=== PATIENT | male | born 1955 | race Caucasian/White ===

== ENCOUNTER 2016-05-30 19:18 | Emergency (ER) | payer MEDICARE ==
[~2016-05-30] VITALS: Ht 182.9 cm; Wt 113.4 kg
[2016-05-30] MEDS ORDERED: ALBUTEROL-200 PUFFS/ IH (19:30)
--- NOTE | 2016-05-30 21:19 | Emergency Room Report ---
History of Present Illness Time Seen by [id number] Presenting Problem in Triage Pt arrived:Walked Presenting Problem:PT STATES THAT HE WAS BREAKING A TV AND CUT HIS RIGHT HAND. 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 N Clinical Suspician of Infection? N Mental Status: 1 - Regular (Normal Baseline) Sepsis Risk:Low Sepsis Risk Have you (or family members/close friends) recently traveled outside the [place]? N If Yes, where/when: Have you had exposure to infectious disease within the past month? N TB? Other? Specify: Source patient, RN notes reviewed, family, old records Exam Limitations no limitations Comment pt with lac rt thumb on glass tonight - not workman comp Cardiac Chest Pain Chest pain indicative of cardiac No Timing/Duration this evening Severity moderate ALLERGIES Coded Allergies: Penicillins (05/30/16) Home Medications Reported Medications Albuterol (Albuterol-Hfa Inhaler) 1 PUFF IH Q4HP PRN BREATHING MISCELLANEOUS (UNKNOWN MEDICATION) 1 CAP PO BID MISCELLANEOUS (UNKNOWN MEDICATION) 1 CAP PO DAILY History Medical History General CAD? No Angina: No IA: No Hypertension? Yes Hyperlipidemia? Yes CHF? No DVT? No PE? No COPD? Yes Asthma? Yes Anemia? No GERD? No Gastric ulcers? No GI Bleed? No Hernia? No Thyroid Problems? No Hypothyroidism? No CVA? No Seizures? No Diabetes? Yes Insulin Dependent: No Insulin Pump: No Home FSBS? Yes Renal Insuffiency? No End Stage Renal Disease? No UTI? No Stones? No BPH? No GB Disease: No Nephritic Syndrome? No Asplenia? No Hepatitis? No Sickle Cell Disease? No Arthritis? No Migraines? No Cataracts? No Glaucoma? No MRSA? No HIV? No TB? No Anxiety? No Depression? No Cancer? No More? No Immunization Hx Ped.Immunizations UTD No DT/Tetanus 5-10 Years Ago Surgical Hx Previous Surgery?Y APPENDECTOMY Social History Smoking Hx Smoker: Current Every Day Smoker Tobacco: Yes Type Cigarettes Packs/day < 1 Pack Are you/the child exposed to second-hand smoke: Yes Alcohol Alcohol: No Drugs none Review of Systems All Other Systems Reviewed and Negative Constitutional denies fever Eyes denies drainage ENT denies: ear discharge, epistaxis, throat pain. Respiratory denies cough, denies shortness of breath, denies wheezing Cardiovascular denies chest pain, denies palpitations, denies syncope Gastrointestinal denies abdominal pain, denies diarrhea, denies vomiting Genitourinary denies: dysuria, frequency, hesitancy, hematuria. Musculoskeletal see HPI, denies back pain, denies joint pain, denies joint swelling, denies neck pain, other Skin see HPI, denies rash, other Psychiatric/Neurological denies headache, denies seizure Physical Exam Vital Signs Vital Signs Date Time Temp Pulse Resp B/P Pulse O2 O2 Flow FiO2 Ox Delivery Rate 05/30 2019 101 16 134/81 93 05/30 1924 98.5 92 18 134/81 95 - WBC >12,000 or <4,000 or 10% bands? 2 or more SIRS Criteria Met? B/P:134/81 MAP:98 Creatinine >2.0? UA output<0.5ml/kg/hr for 2 hrs? Platelet count >100,000? Lactate >2.0mmol/1? INR >1.2 or PTT > than 60 sec? Evidence of Organ Dysfunction? Provider documented clinical suspician of infection? N Sepsis Criteria Count: 1 Sepsis Risk: Low Sepsis Risk General Appearance no apparent distress Eye Exam - bilateral eye PERRL, bilateral eye EOMI Ear, Nose, Throat normal ENT inspection Neck supple Respiratory Status No: respiratory distress. 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 No Results/Orders Current Medication Orders Sig/Jose Luis Start time Last Medication Dose Route Stop Time Status Admin Diphtheria/Pertussis/ 0.5 ML ONCE ONE 05/30 2114 DC Tetanus Vacc IM 05/30 2115 Diphtheria/Pertussis/ 0 .STK-MED ONE 01/11 2100 DC Tetanus Vacc IM Lidocaine HCl 0 .STK-MED ONE 05/30 2056 DC .ROUTE Orders Procedure Date/time Status HAND-RT 3 VIEWS 05/30 1934 Active XRAY/CT/US XRAY/CT/US XRAY hand XR interpretation by reviewed by me Xray Results no fracture seen Procedures Laceration/Wound Repair Laceration/Wound Repair Risks/benefits discussed with pt/guardian? Yes Tetanus status not up to date Wound Location thumb Wound Length (cm) 2 Wound's Depth, Shape sucutaneous tissue Wound Explored no FB identified Risk of retained FB explained to pt/guardian? Yes Irrigated w/ Saline (ccs) 0 Wound Prep Hibiclens, Saline Anesthesia 1% Lidocaine, Local Volume Anesthetic (ccs) 2 Wound Debrided none Wound Repaired With sutures Suture Size/Type 4:0, Ethilon Layer Closure No Total Number Sutures 5 Sterile Dressing Applied Yes Splint Applied No Sling Applied No Departure Departure Time of Disposition 2110 Disposition DC Home or Self Care(routine) Clinical Impression Primary Impression: Laceration Condition STABLE Patient Instructions DI for Laceration Repair Additional Instructions suture out 10 days and recheck if needed Discharge Counseling Counseled pt/family regarding diagnosis, medications/RX, follow up needs ED Critical Care Critical Care No at [id number]
[2016-05-30 21:36] VITALS: BP 134/81
--- NOTE | 2016-05-31 05:16 | RADIOLOGY REPORT PS360 ---
HAND-RT 3 VIEWS HISTORY: LACERATION, POSSIBLE GLASS COMPARISON: None FINDINGS: Artifact patient from the bandage around the first digit. On the lateral view there is a faint density along the base of the proximal phalanx of the thumb posteriorly which could represent a tiny avulsion injury or foreign body. Artifact is also a consideration. No other significant anomalies are evident. IMPRESSION: 1. 1 to 2 mm density at the base of the proximal phalanx of the thumb posteriorly which could be due to an avulsion injury, foreign body, or artifact. 2. Otherwise negative
== END 2016-05-30 21:36 | disposition home or self-care (01) ==
LOC: ER 19:18
PROC: 0HQFXZZ Repair Right Hand Skin, External Approach (ICD-10-PCS; principal; 2016-05-30)
DX: S61.411A Laceration without foreign body of right hand, initial encounter (principal); W25.XXXA Contact with sharp glass, initial encounter; Y92.009 Unspecified place in unspecified non-institutional (private) residence as the place of occurrence of the external cause; Z23 Encounter for immunization; Z72.0 Tobacco use; I10 Essential (primary) hypertension